=== PATIENT | female | born 1990 | race Hispanic/Latino ===

== ENCOUNTER 2020-04-25 09:41 | Inpatient (IN) | payer OTHER, MEDICAID ==
[~2020-04-25] VITALS: Ht 167.6 cm; Wt 101.6 kg
[2020-04-25 10:57] LABS: BASOPHILS % (AUTO) 0.3 % (0.0-5.0); EOSINOPHILS % (AUTO) 2.6 % (0.0-8.0); HEMATOCRIT 34.9 % (36-48); LYMPHOCYTES % (AUTO) 28.6 % (21.0-51.0); MEAN CORPUSCULAR HEMOGLOBIN 28.7 pg (27.0-33.0); MEAN CORPUSCULAR HGB CONC 33.5 g/dL (32.0-36.0); MEAN CORPUSCULAR VOLUME 85.5 fL (79-99); MONOCYTES % (AUTO) 6.2 % (3.0-13.0); NEUTROPHILS % (AUTO) 61.7 % (40.0-77.0); PLATELET COUNT (AUTO) 231 K/uL (130-400); RED BLOOD CELL COUNT(AUTO) 4.08 MIL/uL (4.00-5.50); RED CELL DISTRIBUTION WIDTH 13.2 % (11.0-15.5); WHITE BLOOD COUNT (AUTO) 10.1 K/uL (4.8-10.8)
[2020-04-25 10:59] LABS: APPEARANCE,URINE Cloudy (CLEAR); BILIRUBIN,URINE Negative (NEGATIVE); COLOR,URINE Yellow (YELLOW); GLUCOSE, URINE (UA) Negative (NEGATIVE); KETONES,URINE Trace mg/dL (NEGATIVE); LEUKOCYTE ESTERASE ,URINE Moderate (NEGATIVE); NITRATE,URINE Negative (NEGATIVE); OCCULT BLOOD,URINE Negative (NEGATIVE); PROTEIN,URINE POS 2+ mg/dL (NEGATIVE)
[2020-04-25 11:10] LABS: CREATININE 0.5 mg/dL (0.5-1.5); POTASSIUM 3.8 mmol/L (3.5-5.1)
[2020-04-25 11:14] LABS: ALBUMIN 2.7 g/dL (3.5-5.0); BILIRUBIN,TOTAL 0.2 mg/dL (0.2-1.0); TOTAL PROTEIN, SERUM 7.1 g/dL (6.0-8.3); URIC ACID 3.8 mg/dL (2.6-7.2)
[2020-04-25 11:19] LABS: BACTERIA,URINE Few /HPF (None Seen); RBC,URINE 0-1 /HPF (0-1)
[2020-04-25] MEDS ORDERED: MAGNESIUM 4GM PREMIX 100ML 100 ML IV PRN (11:45)
[2020-04-25] MEDS ORDERED: CALCIUM GLUC 1GM/10ML VIAL IV PRN (11:45)
[2020-04-25] MEDS ORDERED: LABETALOL 20MG VIAL IV ONE (11:52)
[2020-04-25 11:55] LABS: HEMATOCRIT 34.4 % (36-48); MEAN CORPUSCULAR HEMOGLOBIN 28.9 pg (27.0-33.0); MEAN CORPUSCULAR HGB CONC 33.7 g/dL (32.0-36.0); MEAN CORPUSCULAR VOLUME 85.6 fL (79-99); RED BLOOD CELL COUNT(AUTO) 4.02 MIL/uL (4.00-5.50); RED CELL DISTRIBUTION WIDTH 13.3 % (11.0-15.5); WHITE BLOOD COUNT (AUTO) 10.2 K/uL (4.8-10.8)
[2020-04-25] MEDS: LACTATED RINGERS 1000ML 1,000 ML IV SCH ×2 (12:22→22:30)
[2020-04-25] MEDS: CELESTONE SOLUSPAN 6 MG/ML 5ML VIAL IM SCH (12:22)
[2020-04-25] MEDS: LABETALOL 20MG VIAL IV SCH ×2 (12:23→16:41)
[2020-04-25 12:28] LABS: INR 0.95 (0.85-1.15); PROTHROMBIN TIME 10.4 SEC (9.6-11.6)
[2020-04-25 12:30] LABS: PARTIAL THROMBOPLASTIN TIME 27.5 SEC (26.3-35.5)
[2020-04-25] MEDS: MAGNESIUM SULFATE 40GM/1000ML 1,000 ML IV PRN (12:39)
[2020-04-25] MEDS ORDERED: LABETALOL 20MG VIAL IV SCH (16:45)
[2020-04-25 19:30] VITALS: BP 148/88
[2020-04-25] MEDS: LABETALOL 20MG VIAL IV PRN (22:06)
[2020-04-26] MEDS: MAGNESIUM SULFATE 40GM/1000ML 1,000 ML IV PRN ×2 (03:40→22:06)
[2020-04-26] MEDS ORDERED: ACETAMINOPHEN 500 MG TABLET ONE (03:47)
[2020-04-26 07:00] LABS: AMPHET/METH SCREEN,URINE NEGATIVE (NEGATIVE); BARBITURATE SCREEN, URINE NEGATIVE (NEGATIVE); BENZODIAZEPINES SCREEN,URINE NEGATIVE (NEGATIVE); CANNABINOID SCREEN,URINE NEGATIVE (NEGATIVE); COCAINE SCREEN,URINE NEGATIVE (NEGATIVE); OPIATE SCREEN,URINE NEGATIVE (NEGATIVE); PHENCYCLIDINE SCREEN,URINE NEGATIVE (NEGATIVE)
[2020-04-26 07:15] LABS: HEPATITIS Bs ANTIGEN SCREEN P Negative (Negative)
[2020-04-26 11:15] LABS: CREATININE,SERUM FOR CRCL 0.5 mg/dL (0.6-1.3)
[2020-04-26 11:16] LABS: COLLECTION PERIOD,URINE 24 HR; TOTAL VOLUME 24HRS,URINE 6400 mL; TPROTEIN TIMED,URINE 18 mg/dL; TPROTEIN U,24HR CALC 1152 mg/24HR (0-165)
[2020-04-26] MEDS: CELESTONE SOLUSPAN 6 MG/ML 5ML VIAL IM SCH (12:15)
[2020-04-26] MEDS: LACTATED RINGERS 1000ML 1,000 ML IV SCH (14:25)
[2020-04-27] MEDS: LACTATED RINGERS 1000ML 1,000 ML IV SCH ×2 (04:01→21:52)
[2020-04-28] MEDS: LACTATED RINGERS 1000ML 1,000 ML IV SCH (05:05)
[2020-04-28 06:45] LABS: BASOPHILS % (AUTO) 0.3 % (0.0-5.0); EOSINOPHILS % (AUTO) 0.2 % (0.0-8.0); LYMPHOCYTES % (AUTO) 25.7 % (21.0-51.0); MEAN CORPUSCULAR HEMOGLOBIN 28.8 pg (27.0-33.0); MEAN CORPUSCULAR VOLUME 87.3 fL (79-99); PLATELET COUNT (AUTO) 224 K/uL (130-400); RED BLOOD CELL COUNT(AUTO) 3.78 MIL/uL (4.00-5.50); RED CELL DISTRIBUTION WIDTH 13.5 % (11.0-15.5)
[2020-04-28 06:55] LABS: INR 0.94 (0.85-1.15); PROTHROMBIN TIME 10.3 SEC (9.6-11.6)
[2020-04-28 06:57] LABS: PARTIAL THROMBOPLASTIN TIME 24.2 SEC (26.3-35.5)
[2020-04-28 06:58] LABS: ALBUMIN 2.4 g/dL (3.5-5.0); BILIRUBIN,TOTAL 0.2 mg/dL (0.2-1.0); CREATININE 0.6 mg/dL (0.5-1.5); POTASSIUM 3.5 mmol/L (3.5-5.1); TOTAL PROTEIN, SERUM 6.3 g/dL (6.0-8.3); URIC ACID 6.2 mg/dL (2.6-7.2)
[2020-04-28 15:24] VITALS: BP 142/82
[2020-04-28] MEDS ORDERED: PREN-154 PO (15:47)
[2020-04-28 20:55] VITALS: BP 110/53
[2020-04-28 23:49] VITALS: BP 130/78
[2020-04-29 03:35] VITALS: BP 134/81
[2020-04-29 07:14] VITALS: BP 123/68
[2020-04-29] MEDS: PRENATAL VITAMIN RX TABLET PO SCH (09:29)
[2020-04-29] MEDS: ENOXAPARIN SODIUM 40 MG/0.4 ML SYRINGE SQ SCH (09:31)
[2020-04-29 10:57] VITALS: BP 130/76
[2020-04-29] MEDS: INSULIN HUMULIN R 100 UNIT/ML 3ML SQ SCH ×3 (11:30→21:00)
[2020-04-29 16:44] VITALS: BP 142/85
[2020-04-29] MEDS ORDERED: WITCH HAZEL 1 PAD TP PRN (17:30)
[2020-04-29 19:30] VITALS: BP 144/81
[2020-04-29] MEDS: DOCUSATE SODIUM 100 MG CAP PO SCH (21:05)
[2020-04-29 23:44] VITALS: BP 136/64
[2020-04-30 03:30] VITALS: BP 127/71
[2020-04-30 06:18] LABS: BASOPHILS % (AUTO) 0.3 % (0.0-5.0); EOSINOPHILS % (AUTO) 0.7 % (0.0-8.0); HEMATOCRIT 34.2 % (36-48); MEAN CORPUSCULAR HEMOGLOBIN 28.2 pg (27.0-33.0); MEAN CORPUSCULAR HGB CONC 32.5 g/dL (32.0-36.0); MONOCYTES % (AUTO) 5.7 % (3.0-13.0); NEUTROPHILS % (AUTO) 63.1 % (40.0-77.0); PLATELET COUNT (AUTO) 213 K/uL (130-400); RED BLOOD CELL COUNT(AUTO) 3.93 MIL/uL (4.00-5.50); RED CELL DISTRIBUTION WIDTH 13.2 % (11.0-15.5); WHITE BLOOD COUNT (AUTO) 11.1 K/uL (4.8-10.8)
[2020-04-30 06:32] LABS: ALBUMIN 2.4 g/dL (3.5-5.0); BILIRUBIN,TOTAL 0.3 mg/dL (0.2-1.0); CREATININE 0.5 mg/dL (0.5-1.5); POTASSIUM 3.7 mmol/L (3.5-5.1); TOTAL PROTEIN, SERUM 6.3 g/dL (6.0-8.3); URIC ACID 4.8 mg/dL (2.6-7.2)
[2020-04-30 06:35] LABS: INR 0.99 (0.85-1.15); PROTHROMBIN TIME 10.8 SEC (9.6-11.6)
[2020-04-30 07:12] VITALS: BP 143/86
[2020-04-30] MEDS: INSULIN HUMULIN R 100 UNIT/ML 3ML SQ SCH ×4 (07:30→16:30)
[2020-04-30] MEDS ORDERED: CELESTONE SOLUSPAN 6 MG/ML 5ML VIAL IM SCH (07:30)
[2020-04-30] MEDS: DOCUSATE SODIUM 100 MG CAP PO SCH (09:28)
[2020-04-30] MEDS: PRENATAL VITAMIN RX TABLET PO SCH (09:28)
[2020-04-30] MEDS: ENOXAPARIN SODIUM 40 MG/0.4 ML SYRINGE SQ SCH (09:29)
[2020-04-30 11:44] VITALS: BP 151/87
[2020-04-30 12:17] VITALS: BP 134/79
[2020-04-30 16:17] VITALS: BP_SYST 148; BP_SYST 174; BP_DIAS 109; BP_DIAS 85
[2020-04-30 17:08] VITALS: BP 161/100
[2020-04-30] MEDS: 0.9%NACL 1000ML 1,000 ML IV SCH (17:25)
[2020-05-01] MEDS: 0.9%NACL 1000ML 1,000 ML IV SCH ×3 (02:10→18:22)
[2020-05-01 06:39] LABS: CREATININE,SERUM FOR CRCL 0.5 mg/dL (0.6-1.3)
[2020-05-01 06:40] LABS: COLLECTION PERIOD,URINE 24 HR; TOTAL VOLUME 24HRS,URINE 2200 mL; TPROTEIN TIMED,URINE 57 mg/dL; TPROTEIN U,24HR CALC 1254 mg/24HR (0-165)
[2020-05-01] MEDS ORDERED: CALCIUM GLUC 1GM/10ML VIAL IV PRN (19:15)
[2020-05-01] MEDS ORDERED: MAGNESIUM 4GM PREMIX 100ML 100 ML IV PRN (19:15)
[2020-05-01] MEDS ORDERED: LACTATED RINGERS 1000ML 1,000 ML IV SCH (19:15)
[2020-05-01] MEDS: MAGNESIUM SULFATE 40GM/1000ML 1,000 ML IV PRN (19:55)
[2020-05-02] MEDS ORDERED: CEFAZOLIN SODIUM 1 GM VIAL IVP PRN (07:45)
[2020-05-02] MEDS ORDERED: CEFAZOLIN SODIUM 1 GM VIAL ONE (08:12)
[2020-05-02] MEDS ORDERED: METHYLERGONOVINE MALEATE 0.2 MG/1 ML ML ONE (08:13)
[2020-05-02] MEDS ORDERED: MISOPROSTOL 200 MCG TABLET ONE (08:13)
[2020-05-02] MEDS ORDERED: CITRIC ACID/SODIUM CITRATE 30 ML UDCUP ONE (08:59)
[2020-05-02] MEDS ORDERED: OXYTOCIN-LR 20 UNITS/1000 ML 1,000 ML IV SCH (09:00)
[2020-05-02] MEDS ORDERED: FENTANYL CITRATE PF 50 MCG/1 ML 2ML VIAL ONE (09:01)
[2020-05-02] MEDS ORDERED: PHENYLEPHRINE HCL 10 MG/ML 1ML VIAL IV ONE (09:01)
[2020-05-02] MEDS ORDERED: MORPHINE PF 100MG/10ML AMP IV ONE (09:01)
[2020-05-02] MEDS ORDERED: PORACTANT ALFA 120 MG/1.5 ML VIAL IH ONE (09:10)
[2020-05-02] MEDS ORDERED: PORACTANT ALFA 240 MG/3 ML VIAL IH ONE (09:10)
[2020-05-02] MEDS ORDERED: CEFAZOLIN SODIUM 1 GM VIAL IVP ONE (09:10)
[2020-05-02] MEDS ORDERED: CARBOPROST TROMETHAMINE 250 MCG/ML AMP IM ONE (09:20)
[2020-05-02] MEDS ORDERED: OXYTOCIN 10 UNIT/1ML 10ML VIAL ONE (09:36)
[2020-05-02] MEDS ORDERED: MEPERIDINE-PF 50 MG/ML SYG ONE (09:39)
[2020-05-02] MEDS ORDERED: ONDANSETRON 4MG INJ ONE (09:39)
[2020-05-02] MEDS ORDERED: KETOROLAC 30MG VIAL (30MG/ML) IV PRN (10:45)
[2020-05-02] MEDS ORDERED: NALOXONE HCL 0.4 MG/1 ML ML IVP PRN ×3 (10:45)
[2020-05-02] MEDS ORDERED: LORATADINE 10 MG TABLET PO PRN (10:45)
[2020-05-02] MEDS ORDERED: LACTATED RINGERS 1000ML 1,000 ML IV SCH (10:45)
[2020-05-02] MEDS ORDERED: ONDANSETRON 4MG INJ IVP PRN (10:45)
[2020-05-02] MEDS ORDERED: DiphenhydrAMINE HCL 50 MG/ML VIAL IVP PRN (10:45)
[2020-05-02] MEDS ORDERED: CALCIUM GLUC 1GM/10ML VIAL IV PRN (10:45)
[2020-05-02] MEDS ORDERED: CARBOPROST TROMETHAMINE 250 MCG/ML AMP IM SCH (10:45)
[2020-05-02] MEDS: LABETALOL 20MG VIAL IV PRN ×2 (11:23→12:34)
[2020-05-02] MEDS ORDERED: HYDRALAZINE 20MG/ML VIAL IV PRN (14:30)
[2020-05-02] MEDS ORDERED: LABETALOL HCL 100 MG TABLET PO SCH (14:30)
[2020-05-02] MEDS: MAGNESIUM SULFATE 40GM/1000ML 1,000 ML IV PRN (17:05)
[2020-05-02] MEDS ORDERED: LABETALOL HCL 100 MG TABLET ONE (17:20)
[2020-05-02] MEDS ORDERED: HYDRALAZINE 20MG/ML VIAL IV SCH (18:00)
[2020-05-02] MEDS ORDERED: MEPERIDINE-PF 75 MG/ML SYG IM PRN (18:15)
[2020-05-02] MEDS ORDERED: PROMETHAZINE HCL 25 MG/ML 1ML AMPULE IM PRN (18:15)
[2020-05-02] MEDS ORDERED: LABETALOL HCL 100 MG TABLET PO ONE (18:25)
[2020-05-02 20:48] LABS: MAGNESIUM 4.3 mg/dL (1.80-2.40)
[2020-05-02] MEDS: LABETALOL HCL 200 MG TABLET PO SCH (21:19)
[2020-05-03 05:59] LABS: HEMATOCRIT 28.9 % (36-48); MEAN CORPUSCULAR HEMOGLOBIN 28.7 pg (27.0-33.0); MEAN CORPUSCULAR HGB CONC 34.3 g/dL (32.0-36.0); MEAN CORPUSCULAR VOLUME 83.8 fL (79-99); RED BLOOD CELL COUNT(AUTO) 3.45 MIL/uL (4.00-5.50); RED CELL DISTRIBUTION WIDTH 13.6 % (11.0-15.5); WHITE BLOOD COUNT (AUTO) 16.8 K/uL (4.8-10.8)
[2020-05-03 06:08] LABS: MAGNESIUM 4.8 mg/dL (1.80-2.40)
[2020-05-03] MEDS ORDERED: LABETALOL HCL 100 MG TABLET ONE (08:47)
[2020-05-03] MEDS: LABETALOL HCL 200 MG TABLET PO SCH ×3 (08:51→20:57)
[2020-05-03] MEDS ORDERED: MEPERIDINE-PF 75 MG/ML SYG IM PRN (09:45)
[2020-05-03] MEDS ORDERED: CEFAZOLIN SODIUM 1 GM VIAL IVP SCH (09:45)
[2020-05-03] MEDS ORDERED: DEXTROSE 5 %-0.45 % NACL 1,000 ML IV PRN (09:45)
[2020-05-03] MEDS ORDERED: PROMETHAZINE HCL 25 MG/ML 1ML AMPULE IM PRN (09:45)
[2020-05-03] MEDS ORDERED: 0.9%NACL 10ML VIAL IVP PRN (09:45)
[2020-05-03] MEDS ORDERED: OXYTOCIN-LR 20 UNITS/1000 ML 1,000 ML IV PRN (09:45)
[2020-05-03 10:35] VITALS: BP 146/82
[2020-05-03] MEDS ORDERED: ACETAMINOPHEN WITH CODEINE 1 TAB TAB PO PRN (13:15)
[2020-05-03] MEDS ORDERED: HYDROCODONE/ACETAMINOPHEN 5/325 MG TAB PO PRN (13:15)
[2020-05-03] MEDS ORDERED: BISACODYL 10 MG SUPP.RECT RC PRN (13:15)
[2020-05-03] MEDS ORDERED: ACETAMINOPHEN 500 MG TABLET PO PRN (13:15)
[2020-05-03] MEDS ORDERED: LANOLIN 30GM OINTMENT TP PRN (13:15)
[2020-05-03] MEDS ORDERED: IBUPROFEN 800 MG TAB ONE ×2 (13:25→19:44)
[2020-05-03 18:33] VITALS: BP 133/70
[2020-05-03 19:24] VITALS: BP 127/70
[2020-05-03] MEDS: SIMETHICONE 80 MG TAB.CHEW PO PRN (20:57)
[2020-05-03] MEDS: DOCUSATE SODIUM 100 MG CAP PO SCH (20:58)
[2020-05-03 23:23] VITALS: BP 111/66
[2020-05-04] MEDS: IBUPROFEN 800 MG TAB PO SCH ×2 (03:28→10:56)
[2020-05-04 03:34] VITALS: BP 122/72
[2020-05-04 06:25] LABS: HEMATOCRIT 24.8 % (36-48); MEAN CORPUSCULAR HEMOGLOBIN 28.5 pg (27.0-33.0); MEAN CORPUSCULAR HGB CONC 32.7 g/dL (32.0-36.0); MEAN CORPUSCULAR VOLUME 87.3 fL (79-99); RED BLOOD CELL COUNT(AUTO) 2.84 MIL/uL (4.00-5.50); RED CELL DISTRIBUTION WIDTH 14.1 % (11.0-15.5); WHITE BLOOD COUNT (AUTO) 13.8 K/uL (4.8-10.8)
[2020-05-04 07:11] VITALS: BP 119/66
[2020-05-04] MEDS ORDERED: DIPH,PERTUSS(ACELL),TET VAC/PF 0.5 ML VIAL IM SCH (09:00)
[2020-05-04] MEDS: DOCUSATE SODIUM 100 MG CAP PO SCH (09:03)
[2020-05-04] MEDS: SIMETHICONE 80 MG TAB.CHEW PO PRN (09:03)
[2020-05-04] MEDS: LABETALOL HCL 200 MG TABLET PO SCH (09:05)
[2020-05-04] MEDS ORDERED: IBUPROFEN 800 MG TAB PO SCH (09:45)
[2020-05-04] MEDS ORDERED: ACET1TAB25 PO (11:53)
[2020-05-04] MEDS ORDERED: LABE100T5 PO (11:55)
== END 2020-05-04 13:30 | disposition home or self-care (01) | DRG 786 ==
LOC: EDH 09:41 → LDH 09:42 → OBSVTOIN 09:42 → LDH 12:16 → WSH 04-28 10:10 → LDH 04-30 17:55 → WSH 05-03 10:30
PROVIDERS: ADMIT Specialist; ATTEND Specialist
PROC: 10D00Z1 Extraction of Products of Conception, Low, Open Approach (ICD-10-PCS; principal; 2020-05-02 09:00)
PROC: 3E0234Z Introduction of Serum, Toxoid and Vaccine into Muscle, Percutaneous Approach (ICD-10-PCS; 2020-05-04)
DX: O32.1XX1 Maternal care for breech presentation, fetus 1 (principal); O60.14X0 Preterm labor third trimester with preterm delivery third trimester, not applicable or unspecified; O14.14 Severe pre-eclampsia complicating childbirth; O32.1XX2 Maternal care for breech presentation, fetus 2; O24.420 Gestational diabetes mellitus in childbirth, diet controlled; O30.043 Twin pregnancy, dichorionic/diamniotic, third trimester; O99.344 Other mental disorders complicating childbirth; F41.9 Anxiety disorder, unspecified; Z37.2 Twins, both liveborn; Z23 Encounter for immunization; Z3A.33 33 weeks gestation of pregnancy
CPT/HCPCS: 36415; 59025; 59510; 76805; 76810; 76819; 80053; 80305; 81001; 82575; 82947; 82948; 83735; 84156; 84550; 85025; 85027; 85384; 85610; 85730; 86592; 86850; 86900; 86901; 87088; 87340; A4344; G0378; J0360; J0690; J0702; J1650; J2175; J2210; J2274; J2370; J2405; J2590; J3010; J3475; J3490; J7120